=== PATIENT | male | born 1990 | race African-American/Black ===

== ENCOUNTER → 2016-09-07 | Day surgery (SDC) | payer OTHER ==
[~2016-09-07] MED LIST: AMOXICILLIN500 M1 PO; BACTRIM 400-801 TA1 PO; BENZONATATE PO; FLONASE16 GM; KEFLEX500 M1 PO; LORTAB 101 TAB 10/5; MOTRIN600 M2 PO; NO MEDICATIONS; ROBITUSSIN A-C S5 ML PO; TYLENOL #3 PO; VICODIN PO; ZANTAC PO
--- NOTE | ~2016-09-07 | OR ---
Unit #: [id number] #: [id number] Patient: MARYANNE MARIE [id number] [facility] [address]. [place], [place] [address] [id number] O MR#: [id number] NAME: MARYANNE MARIE ROOM: Date of Procedure: 09/07/2016 Admission Date: 09/07/2016 Surgeon: Adrien Quinteros M.D. : 1990 Attending Physician: Adrien Quinteros M.D. Primary Care Physician: Primary Care Physician No OPERATIVE REPORT PREOPERATIVE DIAGNOSIS Chronic recurrent sebaceous cyst and abscess, posterior neck. POSTOPERATIVE DIAGNOSIS Chronic recurrent sebaceous cyst and abscess, posterior neck. PROCEDURE PERFORMED Excision of 4-cm sebaceous cyst with debridement down to the muscular fascia. ANESTHESIA General endotracheal anesthesia. ESTIMATED BLOOD LOSS 20 mL. INDICATIONS FOR PROCEDURE Mr. Marie is a 25-year-old obese gentleman who has had a chronic sebaceous cyst just below the hairline on the posterior neck. He has had multiple infections that spontaneously drained, but it continues to recur despite antibiotics. We plan on doing an excision of the cyst en bloc to prevent recurrence. DESCRIPTION OF PROCEDURE The patient was admitted to [facility], positively identified and transported to the operating room, and after induction of general endotracheal anesthesia, he was placed in the prone position with chest rolls and appropriate padding at all pressure points. He was placed in some slight reverse Trendelenburg. His shoulder rolls were taped inferiorly and then the scalp was pulled superiorly and this exposed the area and this was prepped and draped in the usual sterile fashion. Local anesthetic was infiltrated during the course of the case, and a total of 30 mL of 0.5% Marcaine were used. A wedge excision around the cyst was made and dissected down to clean tissue layers to reach the muscular fascia and then the wedge excision was excised. The excision contained the chronic cyst with a cuff of normal tissue. I irrigated and obtained hemostasis. The fatty tissue was closed in layers with 2-0 Vicryl interrupted suture. The skin was reapproximated with 3-0 nylon vertical mattress sutures. Neosporin ointment was placed over the suture line. The patient was transported to recovery in stable condition. Findings and postoperative instructions were discussed with his fiancee. Unit #: [id number] #: [id number] Patient: MARYANNE MARIE Dictated by... Good Pimentel/patrick TD: 09/08/2016 06:15 JOB #: [id number] OPERATIVE REPORT X Adrien Quinteros MD PROCEDURE OPERATIVE NOTE
== END | disposition home or self-care (01) ==
LOC: CSUR 08:13
DX: L73.9 Follicular disorder, unspecified (principal); M79.89 Other specified soft tissue disorders; Z91.013 Allergy to seafood; Z98.890 Other specified postprocedural states
CPT/HCPCS: 88304; 88312; J0330; J2250; J2405; J2710; J3010; J3370